=== PATIENT | female | born 1990 | race Two or more races ===

== ENCOUNTER 2018-06-24 17:57 | Emergency (ER) | payer SELFPAY ==
[2018-06-24] MEDS ORDERED: predniSONE 20 MG TAB PO ONE (18:06)
[2018-06-24] MEDS ORDERED: IPRATROPIUM/ALBUTEROL 3 ML DEYVIAL IH ONE (18:06)
--- NOTE | 2018-06-24 18:09 | EDPHY ---
H & P Time Seen by Provider: 06/24/18 18:06 HPI/ROS: HPI: This is a 27-year-old female who presents with Chief Complaint: Shortness of breath Location: Chest Quality: Dyspnea Duration: 1 hr prior to arrival Signs and Symptoms: + shortness of breath at rest, + shortness of breath on exertion, no cough, no chest pain, no palpitations, no lower extremity edema, no wheezing, no orthopnea, no paroxysmal nocturnal dyspnea, no fever, no injury/ trauma, no hemoptysis, no carpal pedal spasms Timing: Acute, resolving Severity: Moderate Context: Patient presents via EMS with complaints of sudden onset of shortness of breath after taking marijuana verses dabs and then smoking marijuana via a bong approximately 1 hr prior to arrival. Patient reports that she ran out of her albuterol inhaler and was unable to "catch her breath." She reports that she became very anxious and called EMS. Upon arrival EMS reports that O2 sats were 94% on room air, hyperventilating, panic attack. They gave her albuterol and Atrovent with moderate relief of her symptoms. Patient has a history asthma diagnosed as a child. Has never had hospitalizations secondary to asthma exacerbations or required intubations. Patient denies any right long distance travel, calf pain, hormone use. Modifying Factors: See above Comment: ROS: A comprehensive 10 system review of systems is otherwise negative aside from elements mentioned in the history of present illness. MEDICAL/SURGICAL/SOCIAL HISTORY: Medical history: Asthma Surgical history: Denies Social history: Marijuana and tobacco use. CONSTITUTIONAL: Extremely well-appearing female, talking in complete sentences without dyspnea, awake and alert, no obvious distress HEENT: Atraumatic and normocephalic, PERRL, EOMI. Nares patent; no rhinorrhea; no nasal mucosal edema. Tympanic membranes clear. Oropharynx clear, no exudate and moist pink mucosa. Airway patent. No lymphadenopathy. No meningismus. Cardiovascular: Normal S1/S2, regular rate, regular rhythm, without murmur rub or gallop. PULMONARY/CHEST: Symmetrical and nontender. Clear to auscultation bilaterally. Good air movement. No accessory muscle usage. No stridor. ABDOMEN: Soft, nondistended, nontender, no rebound, no guarding, no peritoneal signs, no masses or organomegaly. No CVAT. EXTREMITIES: 2/2 pulses, strength 5/5, no deformities, no clubbing, no cyanosis or edema. NEUROLOGICAL: no focal neuro deficits. GCS 15. SKIN: Warm and dry, no erythema. no rash. Good capillary refill. Source: Patient, EMS Exam Limitations: No limitations Constitutional: Initial Vital Signs Temperature (C) 36.7 C 06/24/18 18:05 Heart Rate 108 H 06/24/18 18:05 Respiratory Rate 20 06/24/18 18:05 Blood Pressure 88/67 L 06/24/18 18:05 O2 Sat (%) 95 06/24/18 18:05 O2 Delivery Mode Room Air Allergies/Adverse Reactions: dog dander Allergy (Verified 06/24/18 18:05) Sulfa (Sulfonamide Antibiotics) Allergy (Verified 06/24/18 18:05) Home Medications: Medication Instructions Recorded Albuterol Sulfate [Proair Hfa] 1 - 2 puffs IH Q4-6PRN PRN #1 06/24/18 [email or web address] Medical Decision Making - Diagnostics Imaging Results: Imaging Impressions Chest X-Ray 06/24/18 18:06 Impression: 1. Air trapping versus vigorous inspiration with mild diffuse peribronchial thickening. 2. No pneumothorax or pneumomediastinum. ED Course/Re-evaluation: Vital signs 96% on room air upon arrival with mild tachycardia and no tachypnea. Placed on quality assurance monitor chassis. Chest x-ray ordered due to recent bong use Given DuoNeb and prednisone 60 mg Chest x-ray my read shows no opacity, no effusion, no pneumothorax, no widened mediastinum No signs of sepsis, asthma status asthmaticus Repeat vital signs are stable and patient is appropriate for discharge home with prescription for albuterol inhaler. Ambulating pulse ox remained at 98% without respiratory distress. This patient was seen under the supervision of my secondary supervising physician. I evaluated and cared for this patient independently. Differential Diagnosis: Shortness of breath including but not limited to pulmonary infectious process, COPD, asthma, pulmonary embolus and congestive heart failure. - Data Points Medications Given: Discontinued Medications Albuterol/Ipratropium (Duoneb) 3 ml IH EDNOW ONE Stop: 06/24/18 18:07 Last Admin: 06/24/18 18:13 Dose: 3 ml Prednisone (Prednisone) 60 mg PO EDNOW ONE Stop: 06/24/18 18:07 Last Admin: 06/24/18 18:13 Dose: 60 mg Departure - Departure Disposition: Home, Routine, Self-Care Clinical Impression: Mild asthma exacerbation, Marijuana use Condition: Good Instructions: Albuterol (By mouth), Asthma (ED) Additional Instructions: Please refrain from using tobacco or marijuana products. Use albuterol inhaler every 4-6 hours as needed for shortness of breath, wheezing. Referrals: Patient,NotPresent [Unknown] - As per Instructions [facility],. [Clinic] - As per Instructions Prescriptions: Albuterol Sulfate [Proair Hfa] 1 - 2 puffs IH Q4-6PRN PRN #1 [email or web address] PRN Reason: Short Of Breath/Dyspnea
[2018-06-24] MEDS ORDERED: ALBUTEROL 3 ML DEYVIAL ONE (18:10)
[2018-06-24 18:45] VITALS: BP 107/73
== END 2018-06-24 19:06 | disposition home or self-care (01) ==
DX: J45.901 Unspecified asthma with (acute) exacerbation (principal); F12.90 Cannabis use, unspecified, uncomplicated
CPT/HCPCS: J7512; J7613